=== PATIENT | male | born 1985 | race Caucasian/White ===

== ENCOUNTER → 2019-12-12 | Outpatient (CLI) | payer BC ==
--- NOTE | 2019-12-12 12:02 | CT ---
EXAM DESCRIPTION: Abdoment/Pelvis w/o Contrast CLINICAL HISTORY: LLQ PAIN COMPARISON: None. TECHNIQUE: Noncontrast transaxial CT images of the abdomen and pelvis are obtained. This exam was performed according to our departmental dose-optimization program, which includes automated exposure control, adjustment of the mA and/or kV according to patient size and/or use of iterative reconstruction technique . FINDINGS: Visualized lung bases show areas of mild groundglass attenuation in the anterior medial aspect of the right lower lobe. Liver is enlarged at 18.2 cm. Heterogeneous decreased attenuation of the liver is seen. Spleen is enlarged at 15 cm transverse by 14.2 cm craniocaudal. Noncontrast appearance of pancreas, adrenal glands, and gallbladder are unremarkable. Abdominal vasculature is unremarkable. No nephrolithiasis. Left distal ureteral calcification measures 3.0 x 2.7 x 4.1 mm approximately 1 cm from the ureterovesical junction. Minimal left ureteral dilatation is seen with. No hydronephrosis. Urinary bladder is partially distended and unremarkable. Prostate is unremarkable. The appendix is normal. Stomach, small bowel, and colon show no inflammatory changes or wall thickening. No significant diverticular disease. No free air. No abnormal fluid collections. No pathologic lymphadenopathy. No aggressive bony lesions. Mild spondylitic changes of the mostly lower thoracic to upper lumbar spine. IMPRESSION: A 4 mm calcification in the distal left ureter is seen with minimal left ureteral dilatation and no significant hydronephrosis. Hepatomegaly and diffuse fatty infiltration of the liver is seen. Mild splenomegaly is also identified. Mild groundglass attenuation in the right lower lobe is seen. Imaging features can be seen with COVID-19 pneumonia, though are nonspecific and can occur with a variety of infectious and noninfectious processes. Electronically signed by: Onesimo Matamoros MD 12/12/2019 12:01 PM CDT [id number]
== END ==
LOC: CT 09:08
PROVIDERS: ATTEND Family Medicine Sports Medicine
DX: R16.1 Splenomegaly, not elsewhere classified (principal); R16.0 Hepatomegaly, not elsewhere classified; N20.1 Calculus of ureter; R91.8 Other nonspecific abnormal finding of lung field